=== PATIENT | female | born 1970 | race Caucasian/White ===

== ENCOUNTER 2018-10-19 08:58 | Outpatient (REF) | payer MEDICAID, SELFPAY ==
[2018-10-19 12:23] LABS: Anion Gap 8.2 mmol/L (3-11); BUN 13 mg/dL (7-18); CO2 26.8 mmol/L (21.0-32.0); CREATININE 0.95 mg/dL (0.55-1.02); Calcium 8.9 mg/dL (8.5-10.1); Chloride 104 mmol/L (98-107); Cholesterol 164 mg/dL (50-200); Glucose 91 mg/dL (70-100); HDL Cholesterol 61 mg/dL (40-60); LDL CHOLESTEROL 86 mg/dL (<100); Potassium 4.2 mmol/L (3.5-5.1); Sodium 139 mmol/L (136-145); Triglyceride 57 mg/dL (30-150)
== END 2018-10-19 09:18 ==
LOC: NCHCN 08:58
PROVIDERS: PCP Nurse Practitioner Family; Visit Provider Nurse Practitioner Family
DX: Z00.00 Encounter for general adult medical examination without abnormal findings (principal); Z13.220 Encounter for screening for lipoid disorders; Z13.228 Encounter for screening for other metabolic disorders
CPT/HCPCS: 80048; 80061; 83721

== ENCOUNTER 2018-11-10 17:35 | Outpatient (REF) | payer MEDICAID, SELFPAY ==
--- NOTE | 2018-11-10 16:45 | PAPFT_PTH ---
PATIENT: Zuleima Hutchins LOC: [facility] U#:[id number] AGE/SX: 48/F ROOM: RE11/10/[address]: Fide Bridges : 1970 BED: DIS: 11/10/2018 SPEC #: [id number] RECD: 11/10/18 18:08 STATUS: GRUPO REQ #: [id number] GIGI: 11/10/18 16:[address]: Fide Bridges DEPT: [facility] Cytology RECD BY: Savana Gonzalez Tissues: 1 - CX/ENDOCX FOR PAP SMEARS Procedures: PAP THIN PREP/UVM Screening Comments: [id number]
== END 2018-11-10 17:55 ==
LOC: NCHCN 17:35
PROVIDERS: PCP Nurse Practitioner Family; Visit Provider Nurse Practitioner Family
DX: Z12.4 Encounter for screening for malignant neoplasm of cervix (principal); Z00.00 Encounter for general adult medical examination without abnormal findings
CPT/HCPCS: 88142

== ENCOUNTER 2020-10-10 22:37 | Emergency (ER) | payer MEDICAID, SELFPAY ==
[2020-10-10] VITALS (12 sets, daily range): BP systolic 129–142; BP diastolic 78–89; PULSE 100–109; RESP 17–28; TEMP 37.1; O2SAT 96–98
--- NOTE | 2020-10-10 22:30 | RT.EKG_ITS ---
APPROVED REPORT Exam: Resting ECG Reason for Exam: chest pain Patient Location: E HR:105 bpm ECG Measurements Heart Rate 105 AXIS KS 205 P 31 QRSd 94 QRS -4 QT 339 T 16 QTc 448 Conclusion Sinus tachycardia...rate> 99 Prolonged KS interval...KS >205, V-rate 91-120 Low voltage, precordial leads...precordial leads <1.0mV Physician: Rate 105, intervals unremarkable, sinus tachycardia, no significant ST elevation or depres radha, no evidence of STEMI.
--- NOTE | 2020-10-10 22:45 | DI.CT_ITS ---
Exam(s) CT CHEST PE CTA EXAM: CT CHEST PE CTA CLINICAL HISTORY: CP, SOB, crackles in bases, r/o PE. TECHNIQUE: Imaging Protocol: Axial CT angiography was performed with multi-slice acquisition and mu lti-planar and/or 3D reconstructions. CONTRAST MATERIAL: Intravenous: Omnipaque 350 Contrast volume:100 mL COMPARISON: No exams were available for comparison FINDINGS: The examination is limited due to patient motion artifact. Tracheobronchial tree: Patent where visualized. Pulmonary parenchyma: No consolidation or dominant measurable mass. No architectural distortion. Depe ndent atelectasis. Pulmonary Arteries: No evidence of filling defect to suggest pulmonary emboli. The distal and small p ulmonary arteries are not well evaluated for exclusion of distal pulmonary emboli secondary to patien t motion artifact. Mediastinum and Isela: No dominant adenopathy or fluid collection. Visualized thyroid gland: Unremarkable. Pleura: No effusion or pneumothorax. Heart: The heart is not dilated. No coronary artery calcifications are seen. No pericardial effusion. Aorta: Thoracic aorta non-dilated. No evidence of dissection. Upper abdomen: Probable bilateral renal cysts. Soft tissues: Unremarkable. Bones: Within normal limits for the patient's age. IMPRESSION: No evidence of pulmonary embolism, thoracic aortic dissection or aneurysm. RADIATION DOSE DELIVERED: 460.92mGy.cm Total DLP DATA REPOSITORY: All CT scans at this facility are submitted to the National Radiology Data Registry (NRDR) Dose Index Registry (DIR) with the [employer] (ACR). RADIATION OPTIMIZATION: All CT scans at this facility use at least one of these dose optimization te chniques: automated exposure control; mA and/or kV adjustment per patient size (includes targeted exa ms where dose is matched to clinical indication); or iterative reconstruction.
[2020-10-10 23:05] LABS: Abs Immature Grans 0.03 10^3/uL (0.0-0.06); Absolute Basophil Count 0.03 10^3/uL (0.0-0.2); Absolute Eosinophil Count 0.13 10^3/uL (0.0-0.7); Absolute Lymphocyte Count 1.86 10^3/uL (1.2-3.4); Absolute Monocyte Count 0.81 10^3/uL (0.1-0.8); Absolute Neutrophil Count 7.71 10^3/uL (1.2-6.7); Basophils % 0.3; Eosinophils % 1.2; HCT 37.9 % (36.0-46.0); HGB 11.8 g/dL (11.2-15.7); Immature Grans % 0.3; Lymphocytes % 17.6; MCH 24.6 pg (27.0-33.0); MCHC 31.1 % (32.0-36.0); MCV 79.1 fL (80-95); MPV 9.5 fL (8.0-11.0); Monocytes % 7.7; Neutrophils % 72.9; Nucleated RBC 0 %; Platelet Count 326 10^3/uL (130-400); RBC 4.79 10^6/uL (3.93-5.22); RDW 16.4 % (11.7-14.6); RDW-SD 46.8 fL; WBC 10.57 10^3/uL (4.4-10.8)
[2020-10-10] MEDS: Normal Saline 1,000 ML 1000 ML IV (23:05)
[2020-10-10] MEDS: Omnipaque 350 MG/ML 100 ML BTL IJ (23:10)
[2020-10-10] MEDS: Normal Saline - Diluent 50 ML VIAL IV (23:10)
[2020-10-10 23:11] LABS: BE (Venous) 3 mmol/L (-2-3); HCO3 (Venous) 28 mmol/L (23-28); O2 Sat (Venous) 64 %; TCO2 (Venous) 26 mmol/L (24-29); pCO2 (Venous) 48 mmHg (41-51); pH (Venous) 7.37 (7.31-7.41); pO2 (Venous) 35 mmHg
[2020-10-10 23:19] LABS: PTT Activated 23.7 sec (21.0-27.5); Prothrombin Time 10.3 sec (9.3-11.0)
[2020-10-10 23:26] LABS: ALT 34 U/L (14-59); AST 26 U/L (15-37); Albumin 3.7 g/dL (3.4-5.0); Alkaline Phosphatase 90 U/L (46-116); Anion Gap 8.2 mmol/L (3-11); BUN 11 mg/dL (7-18); Bilirubin, Total 0.3 mg/dL (0.2-1.0); CO2 28.8 mmol/L (21.0-32.0); Calcium 8.9 mg/dL (8.5-10.1); Chloride 103 mmol/L (98-107); Estimated GFR 58.93 (mL/min/1.73m2); Glucose 112 mg/dL (74-106); Lipase 111 U/L (73-393); NT-proBNP 43 pg/mL (<300); Potassium 3.4 mmol/L (3.5-5.1); Sodium 140 mmol/L (136-145); TSH (W/Ref FT4) 2.71 uIU/mL (0.36-3.74); Total Protein 8.2 g/dL (6.4-8.2)
[2020-10-10 23:29] LABS: Troponin I < 0.05 ng/mL (<0.06)
[2020-10-10 23:53] LABS: COVID-19 PCR Negative (Negative)
[2020-10-11] VITALS (17 sets, daily range): BP systolic 119–133; BP diastolic 75–81; PULSE 101–110; RESP 17–27; TEMP 37.1; O2SAT 94–97
--- NOTE | 2020-10-11 00:13 | ED.GENADUL_ITS ---
Discharge Plan Disposition Patient Disposition: HOME Condition: Good Discharge Details Clinical Impression: Pericarditis, Chest pain Primary Care Provider: Fide Bridges ED Provider: Ricardo Capps Home Meds and New Rx's Prescriptions: No Action ibuprofen 200 MG capsule 200 mg PO PRN Qty: 2 RF: 0 Discharge Instructions Instructions: Acute Pericarditis (ED) Additional Instructions: At this time your symptoms appear consistent with acute pericarditis which is irritation of the lining around your heart. Please take 800 mg of ibuprofen every 6 hours and 1000 mg of Tylenol every 6 hours as needed for pain. These are the maximum doses. Please rest and relax for the next few days. Avoid any significant exertion. If you notice any worsening of your symptoms, or any new symptoms such as vomiting, diarrhea, fever, chills, shortness of breath, chest pain, numbness, weakness, or fainting , please return immediately to the emergency department for reevaluation. Please follow up with your primary care provider as soon as possible for reassessment and reevaluation. As always, it was a pleasure participating in your medical care today. Referrals: Fide Bridges [Primary Care Provider] - Medical Decision Making 49-year-old female with no medical history whatsoever aside for previous tobacco abuse 15 years ago, for 15 years, presents today for evaluation of chest pain and shortness of breath. At about noon which was 12 hours ago the patient was in her car after eating lunch and developed mild heaviness on her chest, in addition to the sensation of feeling short of breath. She had pain that radiated to her left and then right shoulder, pain went up her left neck, and into her left hand. Seem to be intermittent and varied in location. Currently she states that it is under her left breast. She describes it as achy. It was not related to exertion or activity. She had no associated coughing. Denies PE risk factors such as recent long car rides, immobilization, recent surgery, prior history of DVT or PE, family history of PE or DVT, morbid obesity, exogenous estrogen and smoking, hemoptysis, history of cancer. She denies any tearing or ripping sensation. She denies a history of cardiac disease or family history of cardiac disease. Symptoms are made worse by lying flat and lying back, they are improved with sitting upright leaning forward. She denies any calf tenderness or swelling. No other complaints at this time. She denies any choking episodes while eating. She states that the day was a notably benign day. Physical exam is notably unremarkable, no calf tenderness, she has mild crackles in her bases bilaterally for lungs but otherwise fine. Heart rate is elevated, aspiratory rate slightly high, but oxygenation is excellent. No reproducible chest wall tenderness. Pain notably worsens when she lies flat, and almost completely resolves when she sits up and leans forward. No shingles. Uncertain as to what the exact etiology is of her symptoms but differential includes PE, less likely dissection, potentially pericarditis. Pneumonia is on the differential but no clear inciting episode, no infectious symptoms otherwise. We will continue to monitor closely, evaluate for these life-threatening etiologies and reassess. Symptoms appear inconsistent with ACS as there appears to be no exertional component, and she has no significant risk factors aside for previous smoking. 2:15 AM Work-up is returned is notably reassuring, no white count to suggest infection. No fever. No bandemia. Electrolytes normal, VBG normal showing no elevation of PCO2. proBNP is normal suggesting no signs of heart strain. Initial and then subsequent repeat troponin and initial and repeat EKG both unremarkable showing no significant ST elevation or signs of STEMI. Thyroid function is normal. CTA was ordered and shows no evidence of pulmonary embolism or dissection. A small amount of atelectasis but no consolidation. Symptoms inconsistent with infection. After initial troponin the patient had no resolution of her symptoms, she continued to have notable worsening of pain when she lies flat on the back and resolution when she leans forward. She was given 30 mg of Toradol and after this on reassessment after second troponin had near complete resolution of her symptoms which she attributes to the medication. Symptoms at this time appear notably consistent with acute pericarditis. Uncertain as to the cause of the etiology, potential viral or idiopathic causative agent. No family history of rheumatoid arthritis or lupus. BUN is normal. Will recommend close follow-up with the patient's PCP. Discussed red flags which to return. R ecommend NSAIDs at home. I have extensively reviewed the treatment plan and discharge instructions with the patient. I have addressed all patient concerns at this time. The patient was made aware of what symptoms to monitor for that would warrant a return to the emergency department. Discussed the plan with the patient, they demonstrate verbal understanding and agreement with our assessment and plan at this time. The documentation in this chart was dictated using [employer] dictation software. Please excuse any dictation errors. EKG 22: 45 Rate 105, intervals unremarkable, sinus tachycardia, no significant ST elevation or depression, no evidence of STEMI. FINDINGS: Limitations: Motion artifact. Pulmonary arteries: No pulmonary embolism identified. Small and distal pulmonary arteries partially obscured by breathing motion artifact and not well evaluated for diagnosis or exclusion of small or distal pulmonary emboli. Aorta: No thoracic aortic aneurysm or dissection. Thyroid: Thyroid gland partially excluded from view but grossly unremarkable through its visualized portion. Lungs: Lung gilliam somewhat obscured by artifact from breathing motion. Dependent atelectasis at the lung bases. No pulmonary consolidation. Pleural spaces: No pleural effusion or pneumothorax. Heart: Normal sized heart. Lymph nodes: No pathologically enlarged mediastinal or hilar lymph nodes. Kidneys and ureters: Small indeterminate hypoattenuating renal lesions, incompletely characterized but statistically most likely renal cysts. Bones/joints: Lower ribs partially excluded from view and incompletely e valuated. Otherwise, no acute fracture seen among the bones of the chest. Soft tissues: No gross soft tissue mass or fluid collection seen in the chest wall. IMPRESSION: Dependent atelectasis. No pulmonary consolidation, pleural effusion, or pneumothorax. Thank you for allowing us to participate in the care of your patient. Dictated and Authenticated by: Usman Ha MD 10/11/2020 12:23 AM Eastern Time ([place] & [place]) HPI General Date/Time Provider Initiated Documentation: 10/10/20 22:38 . HPI Narrative: 49-year-old female with no medical history whatsoever aside for previous tobacco abuse 15 years ago, for 15 years, presents today for evaluation of chest pain and shortness of breath. At about noon which was 12 hours ago the patient was in her car after eating lunch and developed mild heaviness on her chest, in addition to the sensation of feeling short of breath. She had pain that radiated to her left and then right shoulder, pain went up her left neck, and into her left hand. Seem to be intermittent and varied in location. Currently she states that it is under her left breast. She describes it as achy. It was not related to exertion or activity. She had no associated coughing. Denies PE risk factors such as recent long car rides, immobilization, recent surgery, prior history of DVT or PE, family history of PE or DVT, morbid obesity, exogenous estrogen and smoking, hemoptysis, history of cancer. She denies any tearing or ripping sensation. She denies a history of cardiac disease or family history of cardiac disease. Symptoms are made worse by lying flat and lying back, they are improved with sitting upright leaning forward. She denies any calf tenderness or swelling. No other complaints at this time. She denies any choking episodes while eating. She states that the day was a notably benign day. Related Data Home Medications Medication Instructions Recorded Confirmed ibuprofen 200 mg PO PRN #2 10/14/13 10/10/20 Allergies Allergy/AdvReac Type Severity Reaction Status Date / Time No Known Drug Allergies Allergy Unverified 10/10/20 22:50 General Stated Complaint: Chest Pain KANDI: 2 Review of Systems All systems reviewed & are unremarkable except as noted in HPI and below PFSH Social History Smoking/Tobacco Use Status: Former Tobacco Use Smoking risk assessment performed?: Yes Alcohol Intake: never Substance use type: does not use Do you feel safe at home: Yes Do you feel safe in your relationship?: Yes Exam Narrative Exam Narrative: 1.Const: Well-nourished, Well-developed, appearing stated age 2.Eyes: PERRL, no conjunctival injection, and symmetrical lids. 3.ENT: Atraumatic external nose and ears. Moist MM. Neck: Symmetric, trachea midline, No thyromegaly. 4.CVS: +S1/S2, No murmurs or gallops. Peripheral pulses 2+ and equal in all extremities. Brisk capillary refill in all extremities. Radial pulses +2 bilaterally. No friction rub. No carotid bruits. 5.RESP: Unlabored respiratory effort. No wheezes or rhonchi. Minimal crackles in the bases bilaterally. 6.GI: Soft, Nontender/Nondistended, No hepatosplenomegaly. No guarding or rebound. No epigastric reproducible tenderness. 7.MSK: Normocephalic/Atraumatic, Extremities w/o deformity or ttp No cyanosis or clubbing, Normal movement of all extremities. No pitting edema, no calf tenderness 8.Skin: Warm, Dry. No rashes or lesions. No evidence of shingles 9.Neuro: fish warden II-XII grossly intact. Sensation grossly intact, no focal neurologic deficits. 10.Psych: (AAO) x3. Appropriate mood and affect Course Vital Signs Vital signs: Vital Signs Temperature 37.1 C 10/10/20 22:44 Pulse 108 H 10/10/20 22:44 Respiratory Rate 28 H 10/10/20 22:44 Blood Pressure 142/83 H 10/10/20 22:44 Pulse Oximetry 97 10/10/20 22:44 Temperature 37.1 C 10/10/20 22:44 Temperature Source Skin 10/10/20 22:44 Pulse 101 H 10/11/20 00:06 Pulse 104 H 10/11/20 00:10 Respiratory Rate 17 10/11/20 00:10 Respiratory Effort Incrsd Work of Breathing 10/10/20 22:51 Respiratory Depth Normal 10/10/20 22:51 Respiratory Pattern Normal 10/10/20 22:51 Blood Pressure 133/76 10/11/20 00:06 Blood Pressure Mean 88 10/11/20 00:06 Pulse Oximetry 96 10/11/20 00:10 Oxygen Delivery Method Room Air 10/10/20 22:44 Oxygen Flow Rate 0 10/10/20 22:44 Pain Level 7 10/10/20 22:51 Lab/Test Results Lab/Test Results: Laboratory Tests Range/Units 10/10/20 10/10/20 10/10/20 22:48 22:48 22:48 WBC (4.4-10.8) 10^3/uL 10.57 RBC (3.93-5.22) 10^6/uL 4.79 Hgb (11.2-15.7) g/dL 11.8 Hct (36.0-46.0) % 37.9 MCV (80-95) fL 79.1 L MCH (27.0-33.0) pg 24.6 L MCHC (32.0-36.0) % 31.1 L RDW (11.7-14.6) % 16.4 H Plt Count (130-400) 10^3/uL 326 MPV (8.0-11.0) fL 9.5 Immature Gran % 0.3 Neutrophils % 72.9 Lymphocytes % 17.6 Monocytes % 7.7 Eosinophils % 1.2 Basophils % 0.3 Nucleated RBC % % 0 Absolute Neutrophils (1.2-6.7) 10^3/uL 7.71 H Absolute Lymphocytes (1.2-3.4) 10^3/uL 1.86 Absolute Monocytes (0.1-0.8) 10^3/uL 0.81 H Absolute Eosinophils (0.0-0.7) 10^3/uL 0.13 Absolute Basophils (0.0-0.2) 10^3/uL 0.03 PT (9.3-11.0) sec 10.3 INR (0.9-1.1) 1.0 APTT (21.0-27.5) sec 23.7 VBG pH (7.31-7.41) VBG pCO2 (41-51) mmHg VBG pO2 mmHg VBG HCO3 (23-28) mmol/L VBG Total CO2 (24-29) mmol/L VBG O2 Saturation % VBG Base Excess (-2-3) mmol/L Sodium (136-145) mmol/L 140 Potassium (3.5-5.1) mmol/L 3.4 L Chloride (98-107) mmol/L 103 Carbon Dioxide (21.0-32.0) mmol/L 28.8 Anion Gap (3-11) mmol/L 8.2 BUN (7-18) mg/dL 11 Creatinine (0.55-1.02) mg/dL 1.0 Estimated GFR/1.73 m2 (mL/min/1.73m2) 58.93 Glucose (74-106) mg/dL 112 H Calcium (8.5-10.1) mg/dL 8.9 Total Bilirubin (0.2-1.0) mg/dL 0.3 AST (15-37) U/L 26 ALT (14-59) U/L 34 Alkaline Phosphatase (46-116) U/L 90 Troponin I (<0.06) ng/mL < 0.05 NT-Pro-B Natriuret Pep (<300) pg/mL 43 Total Protein (6.4-8.2) g/dL 8.2 Albumin (3.4-5.0) g/dL 3.7 Lipase (73-393) U/L 111 TSH (0.36-3.74) uIU/mL 2.71 COVID-19 Source SARS-CoV-2 (PCR) (Negative) Range/Units 05/04/21 05/04/21 22:48 23:10 WBC (4.4-10.8) 10^3/uL RBC (3.93-5.22) 10^6/uL Hgb (11.2-15.7) g/dL Hct (36.0-46.0) % MCV (80-95) fL MCH (27.0-33.0) pg MCHC (32.0-36.0) % RDW (11.7-14.6) % Plt Count (130-400) 10^3/uL MPV (8.0-11.0) fL Immature Gran % Neutrophils % Lymphocytes % Monocytes % Eosinophils % Basophils % Nucleated RBC % % Absolute Neutrophils (1.2-6.7) 10^3/uL Absolute Lymphocytes (1.2-3.4) 10^3/uL Absolute Monocytes (0.1-0.8) 10^3/uL Absolute Eosinophils (0.0-0.7) 10^3/uL Absolute Basophils (0.0-0.2) 10^3/uL PT (9.3-11.0) sec INR (0.9-1.1) APTT (21.0-27.5) sec VBG pH (7.31-7.41) 7.37 VBG pCO2 (41-51) mmHg 48 VBG pO2 mmHg 35 VBG HCO3 (23-28) mmol/L 28 VBG Total CO2 (24-29) mmol/L 26 VBG O2 Saturation % 64 VBG Base Excess (-2-3) mmol/L 3 Sodium (136-145) mmol/L Potassium (3.5-5.1) mmol/L Chloride (98-107) mmol/L Carbon Dioxide (21.0-32.0) mmol/L Anion Gap (3-11) mmol/L BUN (7-18) mg/dL Creatinine (0.55-1.02) mg/dL Estimated GFR/1.73 m2 (mL/min/1.73m2) Glucose (74-106) mg/dL Calcium (8.5-10.1) mg/dL Total Bilirubin (0.2-1.0) mg/dL AST (15-37) U/L ALT (14-59) U/L Alkaline Phosphatase (46-116) U/L Troponin I (<0.06) ng/mL NT-Pro-B Natriuret Pep (<300) pg/mL Total Protein (6.4-8.2) g/dL Albumin (3.4-5.0) g/dL Lipase (73-393) U/L TSH (0.36-3.74) uIU/mL COVID-19 Source Nasopharyx SARS-CoV-2 (PCR) (Negative) Negative POC- Test(urine) Negative
[2020-10-11] MEDS: Ketorolac 30 MG/ML VIAL IVP (00:23)
--- NOTE | 2020-10-11 00:23 | DI.VRAD_ITS ---
PROCEDURE INFORMATION: Exam: CTA Chest With Contrast Exam date and time: 10/10/2020 10:58 PM Age: 49 years old Clinical indication: Other: Cp, SOB, crackles in bases, R/O pe TECHNIQUE: Imaging protocol: Computed tomographic angiography of the chest with contrast. 3D rendering (Not supervised by radiologist): MIP and/or 3D reconstructed images were created by the technologist. Radiation optimization: All CT scans at this facility use at least one of these dose optimization techniques: automated exposure control; mA and/or kV adjustment per patient size (includes targeted exams where dose is matched to clinical indication); or iterative reconstruction. Contrast material: OMNIPAQUE 350; Contrast volume: 100 ml; Contrast route: INTRAVENOUS (IV); COMPARISON: No relevant prior studies available. FINDINGS: Limitations: Motion artifact. Pulmonary arteries: No pulmonary embolism identified. Small and distal pulmonary arteries partially obscured by breathing motion artifact and not well evaluated for diagnosis or exclusion of small or distal pulmonary emboli. Aorta: No thoracic aortic aneurysm or dissection. Thyroid: Thyroid gland partially excluded from view but grossly unremarkable through its visualized portion. Lungs: Lung gilliam somewhat obscured by artifact from breathing motion. Dependent atelectasis at the lung bases. No pulmonary consolidation. Pleural spaces: No pleural effusion or pneumothorax. Heart: Normal sized heart. Lymph nodes: No pathologically enlarged mediastinal or hilar lymph nodes. Kidneys and ureters: Small indeterminate hypoattenuating renal lesions, incompletely characterized but statistically most likely renal cysts. Bones/joints: Lower ribs partially excluded from view and incompletely evaluated. Otherwise, no acute fracture seen among the bones of the chest. Soft tissues: No gross soft tissue mass or fluid collection seen in the chest wall. IMPRESSION: Dependent atelectasis. No pulmonary consolidation, pleural effusion, or pneumothorax. Dictated and Authenticated by: Usman Ha MD. Ordering:FRANCIS Silva MD
--- NOTE | 2020-10-11 01:30 | RT.EKG_ITS ---
APPROVED REPORT Exam: Resting ECG Reason for Exam: chest pain Patient Location: E HR:105 bpm ECG Measurements Heart Rate 105 AXIS KS 184 P 37 QRSd 91 QRS 4 QT 334 T 3 QTc 442 Conclusion Sinus tachycardia...rate> 99 Probable left atrial enlargement...P >50mS, <-0.10mV V1 Low voltage, precordial leads...precordial leads <1.0mV Physician: No acute change from earlier EKG today. No stemi
[2020-10-11 02:02] LABS: Troponin I < 0.05 ng/mL (<0.06)
== END 2020-10-11 02:16 | disposition home or self-care (01) ==
PROVIDERS: Emergency Provider Student in an Organized Health Care Education/Training Program; PCP Nurse Practitioner Family
DX: I31.9 Disease of pericardium, unspecified (principal); R06.02 Shortness of breath; Z20.822 Contact with and (suspected) exposure to COVID-19; R07.9 Chest pain, unspecified
CPT/HCPCS: 71275; 80053; 81025; 82805; 83690; 87635; 93005; 96361; 96374; 99285; 83880; 84443; 84484; 85025; 85610; 85730; 93010; 99284; J1885; J3490

== ENCOUNTER 2020-11-16 19:02 | Outpatient (REF) | payer MEDICAID, SELFPAY ==
[2020-11-16 19:22] LABS: HGB 11.5 g/dL (11.2-15.7); MCH 24.7 pg (27.0-33.0); MCHC 31.1 % (32.0-36.0); MCV 79.6 fL (80-95); MPV 10.2 fL (8.0-11.0); Platelet Count 296 10^3/uL (130-400); RBC 4.65 10^6/uL (3.93-5.22); RDW 16.8 % (11.7-14.6); RDW-SD 48.2 fL; WBC 4.67 10^3/uL (4.4-10.8)
[2020-11-16 19:45] LABS: Anion Gap 7.3 mmol/L (3-11); BUN 17 mg/dL (7-18); CO2 27.7 mmol/L (21.0-32.0); CREATININE 0.9 mg/dL (0.55-1.02); Calcium 8.9 mg/dL (8.5-10.1); Chloride 107 mmol/L (98-107); Ferritin 13 ng/mL (8-252); Glucose 92 mg/dL (74-106); Hemoglobin A1C 5.8 % (<5.7); Potassium 4.4 mmol/L (3.5-5.1); Sodium 142 mmol/L (136-145)
== END 2020-11-16 19:03 | disposition home or self-care (01) ==
LOC: NCHCN 19:02
PROVIDERS: PCP Nurse Practitioner Family; Visit Provider Family Medicine
DX: D64.9 Anemia, unspecified (principal); R73.9 Hyperglycemia, unspecified; I31.8 Other specified diseases of pericardium
CPT/HCPCS: 80048; 85027; 82728; 83036

== ENCOUNTER 2021-09-13 18:29 | Outpatient (REF) | payer MEDICAID, SELFPAY ==
[2021-09-13 15:22] LABS: HCT 37.9 % (36.0-46.0); HGB 11.8 g/dL (11.2-15.7); MCH 25.9 pg (27.0-33.0); MCHC 31.1 % (32.0-36.0); MCV 83.1 fL (80-95); MPV 10.7 fL (8.0-11.0); Platelet Count 271 10^3/uL (130-400); RBC 4.56 10^6/uL (3.93-5.22); RDW 17.2 % (11.7-14.6); RDW-SD 52.6 fL; WBC 3.26 10^3/uL (4.4-10.8)
[2021-09-13 15:38] LABS: Hemoglobin A1C 5.4 % (<5.7)
[2021-09-13 16:06] LABS: ALT 18 U/L (14-59); AST 19 U/L (15-37); Albumin 3.4 g/dL (3.4-5.0); Alkaline Phosphatase 42 U/L (46-116); Anion Gap 9.7 mmol/L (3-11); BUN 9 mg/dL (7-18); Bilirubin, Total 0.3 mg/dL (0.2-1.0); CO2 26.3 mmol/L (21.0-32.0); CREATININE 0.7 mg/dL (0.55-1.02); Calcium 8.5 mg/dL (8.5-10.1); Chloride 106 mmol/L (98-107); Ferritin 13 ng/mL (8-252); Folate 14.8 ng/mL (8.6-20.0); Glucose 85 mg/dL (74-106); Potassium 4.2 mmol/L (3.5-5.1); Sodium 142 mmol/L (136-145); TSH (W/Ref FT4) 1.74 uIU/mL (0.36-3.74); Total Protein 6.8 g/dL (6.4-8.2); Vitamin B12 445 pg/mL (193-986)
[2021-09-13 16:43] LABS: C-Reactive Protein 0.34 mg/dL (0.0-0.3)
== END 2021-09-13 18:30 | disposition home or self-care (01) ==
LOC: NCHCN 18:29
PROVIDERS: PCP Nurse Practitioner Family; Visit Provider Family Medicine
DX: R60.9 Edema, unspecified (principal); R06.09 Other forms of dyspnea; D64.9 Anemia, unspecified; R20.2 Paresthesia of skin; R79.89 Other specified abnormal findings of blood chemistry
CPT/HCPCS: 80053; 85027; 82607; 82728; 82746; 83036; 84443; 86140

== ENCOUNTER 2021-09-24 03:02 | Outpatient (RCR) | payer MEDICAID, SELFPAY ==
--- NOTE | 2021-09-24 10:45 | HOLTER_ITS ---
APPROVED REPORT Conclusion This is a 48-hour monitor, reportedly ordered for dyspnea on exertion Predominant rhythm is sinus with an average heart rate of 84. Minimum was 62, maximum 143 There were very rare isolated premature ventricular contractions There were very rare isolated atrial premature beats There was no atrial fibrillation, no high-grade AV block, no pauses greater than 3 seconds Patient symptoms corresponded to sinus tachycardia at 113, also to sinus rhythm at 71
== END 2021-10-06 23:59 | disposition home or self-care (01) ==
LOC: RT 03:02
PROVIDERS: PCP Nurse Practitioner Family; Visit Provider Family Medicine
DX: R06.09 Other forms of dyspnea (principal); R60.9 Edema, unspecified; D64.9 Anemia, unspecified; R20.0 Anesthesia of skin
CPT/HCPCS: 93225; 93226

== ENCOUNTER → 2021-11-06 01:10 | Outpatient (CLI) | payer MEDICAID, SELFPAY ==
--- NOTE | 2021-11-06 07:30 | DI.US_ITS ---
APPROVED REPORT EXAM: Comprehensive 2D, Doppler, and color-flow Echocardiogram Patient Location: Out-Patient Offc Spec: Farida Maher RDCS (AE) Indications: TERRY, Paresthesia, Edema Other Information Study Quality: Good Conclusion Normal left ventricular wall thickness and chamber size. Estimated ejection fraction is 55 to 60%. Wall motion is normal Normal right ventricular size and systolic function Both atria are normal in size There is no structural or hemodynamically significant valvular disease Normal estimated right ventricular systolic pressure 18 mmHg Wall motion Left Ventricle The left ventricle is normal size. The left ventricular systolic function is normal. The left ventric ular ejection fraction is within the normal range. There is normal left ventricular wall thickness. T here is normal LV segmental wall motion. There is no ventricular septal defect visualized. LVEF is 58 %. Right Ventricle The right ventricle is normal size. The right ventricular systolic function is normal. The RVSP is 17 .7mmHg. Atria The left atrium size is normal. The right atrium size is normal. The interatrial septum is intact wit h no evidence for an atrial septal defect. Aortic Valve The aortic valve is normal in structure. There is no aortic valvular stenosis. No aortic regurgitatio n is present. Mitral Valve The mitral valve is normal in structure. No evidence of mitral valve stenosis. Trace to mild mitral r egurgitation. Tricuspid Valve The tricuspid valve is normal in structure. There is no tricuspid valve stenosis. Trace to mild tricu spid regurgitation. Pulmonic Valve The pulmonary valve is normal in structure. There is no pulmonic valvular stenosis. Trace pulmonic re gurgitation. Great Vessels The aortic root is normal in size. The ascending aorta is normal in size. Aortic arch is normal in ca liber. IVC is normal in size and collapses >50% with inspiration. Pericardium There is no pericardial effusion. 2D Dimensions IVSD d PLAX 0.81 cm F: 0.6-1.0 LV Vol A2C d MOD 74.4 mL LVPW d PLAX 0.81 cm F: 0.6 - 1.0 LV Vol A4C d MOD 113.6 mL LVID d PLAX 4.61 cm F: 3.8 - 5.2 LA vol/ BSA A2C s A-L 22.2 mL/m2 LVDs 2.95 cm F: 2.2 - 3.5 LA vol/ BSA A4C s A-L 17.4 mL/m2 Ao Root d 2.51 cm F: 2.7 - 3.3 LA Vol/ BSA Biplane s A-L 19.7 mL/m2 RA Area A4C 11.27 cm2 LA Area A4C s MOD 14.32 cm2 RA Vol/ BSA A4C s A-L 12.5 mL/m2 LA Area A2C s MOD 16.26 cm2 Ao Asc Diam d 3.01 cm F: 2.3 - 3.1 LV EF A4C MOD 58.3 % LV EF Teichholz 64.3 % LV EF A2C MOD 60.3 % LVEF (Son's) 56.82 % F: 54 - 74 LV EF Biplane MOD 56.8 % LV Volume 72.33 mL F: 46 - 106 SV 54.27 mL LV Volume Index 37.28 mL/m2 F: 29 - 61 SV Index 27.92 mL/m2 LV Vol Biplane MOD 95.5 mL FS 35.00 % M-Mode TAPSE 2.60 cm (M/F) >1.7 LV Diastology MV E' medial 0.075 (>0.07 m/s) E/A Ratio 0.9 LV E/e MED 9.15 (<14) MV E Vmax 0.69 (0.4-1.3 m/s) MV E' lateral 0.088 (>0.1 m/s) MV A Vmax 0.75 (0.4-1.3 m/s) LV E/e LAT 7.80 (<14) MV E/A Ratio 0.90 MV E/E' medial 9.16 MV E/E' lateral 7.80 Aortic Valve LVOT Area 3.07 cm2 AoV Area Vmax 2.46 cm2 LVOT Vmax 1.07 m/s AoV Area/ BSA (Vmax) 1.27 cm2/m2 LVOT Mean Blane. 0.69 m/s RUDDY Mean Blane. 2.22 cm2 LVOT Peak Grad 4.6 mmHg RUDDY Mean Blane. Index 1.14 cm2/m2 LVOT Mean Grad 2.2 mmHg LVOT VTI 0.209 m LVOT Diam s 1.95 cm AoV Vmax 1.34 m/s Velocity Ratio 0.79 AoV Mean Blane. 0.96 m/s AoV Peak Grad 7.1 mmHg LVOT SV 64.19 mL AoV Mean Grad 4.1 mmHg AoV VTI 0.287 m AoV Area VTI 2.23 cm2 AoV Area/ BSA (VTI) 1.15 cm/m2 Mitral Valve MV DT 247 (160-240 msec) MV PHT 72 msec MV Area PHT 3.07 cm2 MV VTI 0.263 m MV Area VTI 2.44 (4.0-6.0 cm2) Pulmonary Valve PV Vmax 0.83 (0.5-1.5 m/s) RVOT Peak Gr. 1.87 mmHg PV Peak Grad 2.8 mmHg RVOT Mean Gr. 1.00 mmHg PV Mean Grad 1.8 mmHg RVOT VTI 0.158 m PV VTI 0.183 m RVOT Vmax 0.68 m/s Tricuspid Valve TR Peak Grad 14.6 mmHg TR Vmax 1.92 m/s RA Pressure 3.00 mmHg RVSP (TR) 17.7 mmHg
== END ==
PROVIDERS: PCP Nurse Practitioner Family; Visit Provider Family Medicine
DX: R06.09 Other forms of dyspnea (principal); R20.2 Paresthesia of skin; R60.1 Generalized edema
CPT/HCPCS: 93306

== ENCOUNTER → 2021-11-14 01:07 | Outpatient (CLI) | payer MEDICAID, SELFPAY ==
--- NOTE | 2021-11-14 | DI.US_ITS ---
Exam(s) US EXTREMITY VENOUS BI EXAM: US EXTREMITY VENOUS BI CLINICAL HISTORY: ONE MONTH EDEMA BOTH LEGS, NORMAL RENAL FUNCTION, ACHING RT LEG, R60.9 TECHNIQUE: Grayscale, color, and doppler imaging of the deep venous system of both lower extremities was performed. COMPARISON: US US ECHOCARDIOGRAM from 11/06/2021 FINDINGS: There is no evidence of intraluminal thrombus and there is normal compression and augmentation demons trated within the common femoral veins, femoral veins, and popliteal veins of both lower extremities. In the calves the interrogated veins also exhibit normal compression/ augmentation properties. The greater saphenous veins also appear patent as do the saphenofemoral junctions bilaterally.. IMPRESSION: 1. No ultrasound evidence of DVT in either lower extremity. DATA REPOSITORY:
== END ==
PROVIDERS: PCP Nurse Practitioner Family; Visit Provider Family Medicine
DX: R60.0 Localized edema (principal); M79.604 Pain in right leg
CPT/HCPCS: 93970

== ENCOUNTER 2021-11-14 10:16 | Outpatient (REF) | payer MEDICAID, SELFPAY ==
[2021-11-14 16:18] LABS: COMMENT (LAB VIEW ONLY) 130.29 mg/dL; Microalb ug/mg Crea 6.8 ug/mg Cr
== END 2021-11-14 10:17 | disposition home or self-care (01) ==
LOC: NCHCN 10:16
PROVIDERS: PCP Nurse Practitioner Family; Visit Provider Family Medicine
DX: R60.0 Localized edema (principal)
CPT/HCPCS: 82043; 82570

== ENCOUNTER 2021-11-14 12:07 | Outpatient (CLI) | payer MEDICAID, SELFPAY ==
[2021-11-14 17:38] LABS: Rheumatoid Factor <8.6 IU/mL (<12.0)
[2021-11-15 05:25] LABS: Vitamin D 25 Total 29.3 ng/mL (30-100)
[2021-11-15 09:32] LABS: Lyme Ab w Rflx to Lyme Confirm Negative (Negative)
[2021-11-15 15:08] LABS: ANA Interpretation Positive (Negative); ANA Titer Pattern 1:320 Homogeneous
== END 2021-11-14 12:08 | disposition home or self-care (01) ==
LOC: LBO 12:09
PROVIDERS: PCP Nurse Practitioner Family; Visit Provider Psychiatry & Neurology Neurology
DX: G35 Multiple sclerosis (principal); R20.2 Paresthesia of skin; E55.9 Vitamin D deficiency, unspecified
CPT/HCPCS: 36415; 82306; 86038; 86431; 86618

== ENCOUNTER → 2021-11-22 02:24 | Outpatient (CLI) | payer MEDICAID, SELFPAY ==
--- NOTE | 2021-11-22 06:30 | DI.MRI_ITS ---
Exam(s) MR BRAIN WO EXAM: MR BRAIN WO CLINICAL HISTORY: ?MS,PARESTHESIAS,R20.2 TECHNIQUE: Multiplanar multisequence MRI of the brain was performed. COMPARISON: No exams were available for comparison FINDINGS: CEREBRAL PARENCHYMA: There is no evidence of intracranial hemorrhage, mass effect, or shift of midline structures. There are no extra-axial fluid collections. Ventricles are not enlarged or shifted. There is no significant focal signal abnormality in the cerebellar hemispheres nor within the maxx, m idbrain, and thalami. There is no abnormal signal abnormality in the periventricular white matter. No evidence of demyelin ating disease. There is no significant focal signal abnormality evident on diffusion imaging to suggest acute ischem ic event. SWI: No evidence of microhemorrhages. PITUITARY GLAND: No mass nor parasellar abnormality. No obvious abnormality in the cavernous sinuses. FLOW VOIDS: The expected flow void are noted. No evidence of obvious aneurysm nor obvious vascular ma lformation. PARANASAL SINUSES: The visualized paranasal sinuses appear unremarkable. No obvious finding ORBITS: No obvious findings. IMPRESSION: No significant intracranial findings on this noninfused MRI scan of the brain. No evidence of demyelinating disease. DATA REPOSITORY:
== END ==
PROVIDERS: PCP Nurse Practitioner Family; Visit Provider Psychiatry & Neurology Neurology
DX: R20.2 Paresthesia of skin (principal)
CPT/HCPCS: 70551

== ENCOUNTER 2024-07-24 11:34 | Emergency (ER) | payer MEDICAID, SELFPAY ==
[2024-07-24 11:37] VITALS: BP 135/81; PULSE 98; RESP 18; TEMP 36.6; O2SAT 98
--- NOTE | 2024-07-24 12:00 | DI.RAD_ITS ---
Exam(s) XR HIP LT COMPLETE AP PELVIS EXAM: XR HIP LT COMPLETE AP PELVIS CLINICAL HISTORY: left hip pain no fall. TECHNIQUE: 2D digital imaging was performed. COMPARISON: No exams were available for comparison FINDINGS: Two views. There is no evidence of pelvic nor hip fracture. No hip joint space narrowing. No osteophytes. Bon e density normal. No osseous lesions in the hips and pelvis. Sacroiliac joints appear unremarkable. IMPRESSION: No significant osseous findings in the pelvis and hips. DATA REPOSITORY: RADIATION DOSE DELIVERED:
--- NOTE | 2024-07-24 12:00 | DI.RAD_ITS ---
Exam(s) XR LUMBAR SPINE COMPLETE EXAM: XR LUMBAR SPINE COMPLETE CLINICAL HISTORY: left back pain. TECHNIQUE: 2D digital imaging was performed. COMPARISON: No exams were available for comparison FINDINGS: Five views. There is no evidence of fracture, listhesis, nor pars interarticularis defects. There is mild disc space narrowing at L4-5 level. Minimal facet degenerative changes. No scoliosis. Sacroiliac joints appear unremarkable. No osseous lesions. IMPRESSION: No acute osseous findings in the lumbar spine. There is mild disc space narrowing at L4-5 level. DATA REPOSITORY: RADIATION DOSE DELIVERED:
[2024-07-24] MEDS: Cyclobenzaprine 10 MG TAB PO (12:24)
[2024-07-24] MEDS: Ketorolac 30 MG/ML VIAL IM (12:25)
[2024-07-24] MEDS: Lidocaine 5% Patch 1 PATCH TP (12:26)
[2024-07-24] MEDS: methylPREDNISolone SUCC 125 MG VIAL IVP (12:27)
[2024-07-24 12:28] LABS: Bilirubin Negative (Negative); Blood Negative (Negative); Clarity Clear (Clear); Glucose Negative (Negative); Ketones Negative (Negative); Leukocyte Esterase Negative (Negative); Nitrite Negative (Negative); Urobilinogen 0.2 mg/dL (Up to 0.2); pH 6.5 (5-8)
--- NOTE | 2024-07-24 13:19 | DI.VRAD_ITS ---
PROCEDURE INFORMATION: Exam: XR Left Hip Exam date and time: 07/24/2024 12:57 PM Age: 53 years old Clinical indication: Hip pain; Left hip TECHNIQUE: Imaging protocol: Radiologic exam of the left hip. Views: 2 or 3 views hip with pelvis when performed. COMPARISON: No relevant prior studies available. FINDINGS: Bones/joints: Unremarkable. No acute fracture. Soft tissues: Unremarkable. IMPRESSION: No acute findings. Dictated and Authenticated by: Shadi Samuel MD. Orderin Génesis Silva MD
[2024-07-24 13:20] VITALS: BP 119/82; PULSE 75; RESP 14; O2SAT 97
--- NOTE | 2024-07-24 13:20 | DI.VRAD_ITS ---
PROCEDURE INFORMATION: Exam: XR Lumbosacral Spine Exam date and time: 07/24/2024 1:00 PM Age: 53 years old Clinical indication: Low back pain TECHNIQUE: Imaging protocol: Radiologic exam of the lumbosacral spine. Views: 4 or 5 views. COMPARISON: CR XR HIP LT COMPLETE AP PELVIS 07/24/2024 12:57 PM FINDINGS: Bones/joints: Normal. No acute fracture. Normal alignment. Soft tissues: Unremarkable. IMPRESSION: No acute findings. Dictated and Authenticated by: Shadi Samuel MD. Orderin Génesis Silva MD
--- OUTSIDE RECORDS SUMMARY | 2024-07-24 13:20 | XMS_ITS | Encounter Summary ---
Author Organization [facility] Address [address] [place] [address] Care Team Providers Care Email Marketing Manager Name Role Phone Unknown, Provider Primary Care Provider Unava ilable Encounter Details Date Type Department Care Team (Late st Contact Info) Description 10/25/2008 Orders Only [facility] Laboratory Services - [facility] [place] [place] [address] [place], [place] [id number] Lani Recinos NP [address] [facility],[address] [phone] Social History Tobacco Use Types Packs/Day Years Used Date Smoking Tobacco: Never Assessed Comments Unknown Sex and Gender Information Value Date Recorded Sex Assigned at Not on file Legal Sex Female 18:45 EST Gender Identity Not on file Sexual Orientation Not on file documented as of this encounter Plan of Treatment Not on file documented as of this encounter Procedures Procedure Name Priority Date/Time Associated Diagnosis Comments HPV DETECTION, HIGH RISK TYPES Routine 10/25/2008 16:30 EDT CYTOPATHOLOGY Routine 10/25/2008 0:00 EDT documented in this encounter Results * HUMAN PAPILLOMA VIRUS DNA TEST (10/25/2008 16:30 EDT) Specimen Description Cervix, ThinPrep vial [facility] Result Negative for HPV types 16, 18, 31, 33, 35, 39, 45, 51, 52, 56, 58, 59, and 68. [facility] Report Status Final 11/08/2008 [facility] 10/25/2008 16:3 0 EDT 11/02/2008 8:55 EDT us Lani Recinos FRANCHISE SALES REPRESENTATIVE MICROBIOLOGY - GENERAL ORDER YOSELIN Final Result [facility] [address] [place] [address] * CYTOPATHOLOGY (10/25/2008 0:00 EDT) Pathology Report: CYTOPATHOLOGY REPORT ? Reports generated via electronic interface contain original data; ? however they are lacking the format of the original report. ? Caution should be taken when reading/interpreti ng unformatted reports. ? Name: ? ZULEIMA CHANEL ? Accession #: ? [id number] ? : ? 1970 (Age: 37) ??F ?Collect Date: ? 10/25/2008 ? Location: ? [facility] ? Receive Date: ? 10/27/2008 ? Provider: ?LANI W BESCH FRANCHISE SALES REPRESENTATIVE ? Copy to: ? Specimen/Source: ?Pap Test, Cervix/Endocervix, ThinPrep Imaging System ? with manual evaluation ? Last Menstrual Period: ? 5/7/09 ? Other: ? HPVDX - HPV testing requested regardless of diagnosis on current ThinPrep Pap ?? test. ? SPECIMEN ADEQUACY ? Satisfactory for Evaluation ? - transformation zone component present ? GENERAL CATEGORIZATION ? Negative for Intraepithelial Lesion or Malignancy ? Document reviewed and electronically signed by: ? Chikis Adams, CT(ASCP) ? Report Date: ??11/01/2008 13:18 ? End of Report ? [facility] 10/25/2008 10/27/2008 us Lani Recinos FRANCHISE SALES REPRESENTATIVE PATHOLOGY ORDERABLES Final R esult [facility] [address] [place] [address] documented in this encounter Visit Diagnoses Not on filedocumented in this encounter Care Teams Email Marketing Manager Relationship Specialty Start Date End Date Unknown, Provider, PCP - General 10/27/08 documented as of this encounter
--- OUTSIDE RECORDS SUMMARY | 2024-07-24 13:20 | XMS_ITS | Encounter Summary ---
[place] [address] Care Team Providers Care Supervisor Plastering Name Role Phone Unavailable Primary Care Provider Unavailabl e Encounter Details Date Type Department Care Team (Late st Contact Info) Description 04/10/2010 3:45 PM EDT Office Visit Dermatology [address] [place] [address] Fercho Mauricio MD [address] [facility] [place] [address] Social History Tobacco Use Types Packs/Day Years Used Date Smoking Tobacco: Never Assessed Sex and Gender Information Value Date Recorded Sex Assigned at Not on file Gender Identity Not on file Sexual Orientation Not on file documented as of this encounter Plan of Treatment Not on file documented as of this encounter Visit Diagnoses Not on filedocumented in this encounter
--- OUTSIDE RECORDS SUMMARY | 2024-07-24 13:20 | XMS_ITS | Encounter Summary ---
Author Organization [facility] Address [address] [place] [address] Care Team Providers Care Pot Press Operator Name Role Phone Unknown, Provider Primary Care Provider Unava ilable Encounter Details Date Type Department Care Team (Late st Contact Info) Description 11/10/2018 Results Only [facility] [phone] Verenice Bridges FNP [address] [place], [place] [phone] Social History Tobacco Use Types Packs/Day Years [...] Procedure Name Priority Date/Time Associated Diagnosis Comments PAP TEST- RESULT ONLY Routine 11/10/2018 0:00 EDT documented in this encounter Results * PAP TEST- RESULT ONLY (11/10/2018 0:00 EDT) Pathology Report: CYTOPATHOLOGY REPORT Reports generated via electronic interface contain original data; however they are lacking the format of the original report. Caution should be taken when reading/interpreti ng unformatted reports. Name: ? ZULEIMA BEATTY ? Accession #: ? [id number] : ? 1970 (Age: 48) ??F ?Collect Date: ? 11/10/2018 Location: ? [facility] ? Receive Date: ? 11/11/2018 Provider: ?VERENICE BRIDGES USED CAR SALES MANAGER Copy to: ? Specimen/Source: ?Pap Test, Cervix, ThinPrep Imaging System with manual evaluation Last Menstrual Period: ? Other: ? Additional clinical information: Z00.00 Z12.4 Z11.51 ? SPECIMEN ADEQUACY ? Satisfactory for Evaluation - transformation zone component present GENERAL CATEGORIZATION ? Negative for Intraepithelial Lesion or Malignancy ? Document reviewed and electronically signed by: ? Chikis Adams, CT(ASCP) ? Report Date: ??11/12/2018 15:04 End of Report [facility] 11/10/2018 11/11/2018 us Verenice [facility] PATHOLOGY ORDERABLES Final Res ult [facility] [address] [place] [address] documented in this encounter Visit Diagnoses Not on filedocumented in this encounter Care Teams Pot Press Operator Relationship Specialty Start Date End Date Unknown, Provider, PCP - General 10/27/08 documented as of this encounter
--- OUTSIDE RECORDS SUMMARY | 2024-07-24 13:20 | XMS_ITS | Referral Summary ---
Author Organization [facility] Address [address] [place] [address] Care Team Providers Care Lead Person Name Role Phone Unknown, Provider MD Primary Care Provider Unava ilable Social History Tobacco Use Types Packs/Day Years Used Date Smoking Tobacco: Never Assessed Comments Unknown Sex and Gender Information Value Date Recorded Sex Assigned at Not on file Legal Sex Female 18:45 EST Gender Identity Not on file Sexual Orientation Not on file Plan of Treatment Not on file Care Teams Lead Person Relationship Specialty Start Date End Date Unknown, Provider, PCP - General 10/27/08
--- OUTSIDE RECORDS SUMMARY | 2024-07-24 13:20 | XMS_ITS | Clinical Summary ---
Author Organization [facility] Address [address] [place] [address] Care Team Providers Care Mule Spinner Name Role Phone Unknown, Provider MD Primary Care Provider Unava ilable Social History Tobacco Use Types Packs/Day Years Used Date Smoking Tobacco: Never Assessed Comments Unknown Sex and Gender Information Value Date Recorded Sex Assigned at Not on file Legal Sex Female 18:45 EST Gender Identity Not on file Sexual Orientation Not on file Plan of Treatment Health Maintenance Due Date Last Done Comments Hepatitis C Screen 1970 Hepatitis B Vaccine (1 of 3 - 19+ 3-dose series) 11/06 COVID-19 Vaccine (2023- season) 2024 Care Teams Mule Spinner Relationship Specialty Start Date End Date Unknown, Provider, PCP - General 10/27/08
--- OUTSIDE RECORDS SUMMARY | 2024-07-24 13:20 | XMS_ITS | Clinical Summary ---
Author Organization [facility] [place] [address] Care Team Providers Care Speech And Language Clinician Name Role Phone None Primary Care Provider Unavailabl e Medications Medication Sig Dispensed Refills Start Date End Date Status spironolactone (ALDACTONE) 50 mg tablet 50 MG = 1 Tablet(s), PO, Twice daily 04/10/2010 Active Social History Tobacco Use Types Packs/Day Years Used Date Smoking Tobacco: Never Assessed Sex and Gender Information Value Date Recorded Sex Assigned at Not on file Gender Identity Not on file Sexual Orientation Not on file Plan of Treatment Health Maintenance Due Date Last Done Comments CT Colonography 1970 Colonoscopy 1970 Colorectal Cancer Screening 1970 FIT DNA 1970 FIT 1970 Sigmoidoscopy (10 year) with FIT yearly 1970 Sigmoidoscopy 1970 HIV screen 1988 Hepatitis C Screening 1988 Hepatitis B vaccine (0-59 yrs) (1) 1989 Tetanus/Diphtheria/Pertussis Vaccines (1 - Tdap) 11/06 HPV test 2000 PAP Smear 2000 Breast Cancer Share Decision Needed 2010 Breast Cancer screening 2010 Pneumoccocal Vaccine: 50+ (1 of 1 - PCV) 2020 Zoster vaccine (1 of 2) 2020 Covid-19 Vaccine (1 - 2023- season) 2024 Influenza (Flu) vaccine (1 o f 1 - Influenza standard series) 02/08/2024 Care Teams Speech And Language Clinician Relationship Specialty Start Date End Date None None PCP - General 06/18/24
--- OUTSIDE RECORDS SUMMARY | 2024-07-24 13:20 | XMS_ITS | Encounter Summary ---
Author Organization [facility] Address [address] [place] [address] Care Team Providers Care Personnel Consultant Name Role Phone Unknown, Provider MD Primary Care Provider Unava ilable Encounter Details Date Type Department Care Team (Late st Contact Info) Description 11/14/2021 Lab Requisition [facility] Pathology & Laboratory Medicine - [facility] [address] [place] [address] Outr Resulting Lab, Provider Social History Tobacco Use Types Packs/Day Years [...] Procedure Name Priority Date/Time Associated Diagnosis Comments HOLD SST Today 11/14/2021 10:25 EDT HOLD SST Today 11/14/2021 10:25 EDT LYME AB Today 11/14/2021 10:25 EDT RHEUMATOID FACTOR Today 11/14/2021 10: 25 EDT ANTI NUCLEAR AB (TOMAS), IFA Today 11/14/2021 10:25 EDT documented in this encounter Results * HOLD SST (11/14/2021 10:25 EDT) Hold Hold 11/14/2021 18:[address] [facility] Blood VENOUS BLOOD / Unknown 11/14/2021 10:25 EDT 11/14/2021 16:53 EDT us Provider Outr Resulting Lab LAB INFO SERVICE AND SUPPORT & PHONE RESULT Final Result [facility] [address] [place] [address] * HOLD SST (11/14/2021 10:25 EDT) Hold Hold 11/14/2021 18:[address] [facility] Blood VENOUS BLOOD / Unknown 11/14/2021 10:25 EDT 11/14/2021 16:53 EDT us Provider Outr Resulting Lab LAB INFO SERVICE AND SUPPORT & PHONE RESULT Final Result Performing Organization Address City/[facility]/ZIP Co de Phone Number [facility] [address] [place] [id number] * LYME AB (11/14/2021 10:25 EDT) Pathologist [facility] Lyme Ab Negative Negative 11/15/2021 9:[address] [facility] Blood VENOUS BLOOD / Unknown 11/14/2021 10:25 EDT 11/14/2021 16:53 EDT us Provider Outr Resulting Lab IMMUNOLOGY AND SEROL OGY ORDERABLES Final Result [facility] [address] [place] [id number] * RHEUMATOID FACTOR (11/14/2021 10:25 EDT) [facility] Rheumatoid Factor <8.6 <12.0 IU/mL 11/14/2021 17:[address] [facility] Blood VENOUS BLOOD / Unknown 11/14/2021 10:25 EDT 11/14/2021 16:53 EDT us Provider Outr Resulting Lab CHEMISTRY & BLOOD GA S ORDERABLES Final Result [facility] [address] [place] [address] * (ABNORMAL) ANTI NUCLEAR AB (TOMAS), IFA (11/14/2021 10:25 EDT) TOMAS Interpretation Positive(A) Negative 11/15/2021 15:[address] [facility] Comment: For titers greater than or equal to 1:160 (except the centromere and nucleolar patterns) it is recommended that specific follow-up autoantibody testing ??(such as for dsDNA and Extractable Nuclear Antigens) be performed on all diffuse and/or speckled patterns NOTE: For add-on testing dsDNA is stable for 7 days refrigerated while Extractable Nuclear Antigens are only stable for 48 hours refrigerated. TOMAS Titer and Pattern 1 1:320 Homogeneous 11/15/2021 15:02 ED[address] [facility] Blood VENOUS BLOOD / Unknown 11/14/2021 10:25 EDT 11/14/2021 16:53 EDT Narrative [facility] - 11/15/2021 15:02 EDT Results were obtained with the INOVA NOVA Lite HEp-2 TOMAS Kit by indirect immunofluorescence. us Provider Outr Resulting Lab IMMUNOLOGY AND SEROL OGY ORDERABLES Final Result [facility] [address] [place] [address] documented in this encounter Visit Diagnoses Not on filedocumented in this encounter Care Teams Personnel Consultant Relationship Specialty Start Date End Date Unknown, Provider, PCP - General 10/27/08 documented as of this encounter
--- OUTSIDE RECORDS SUMMARY | 2024-07-24 13:20 | XMS_ITS | Encounter Summary ---
Author Organization [facility] Address [address] [place] [address] Care Team Providers Care Canvas Baster Name Role Phone Unknown, Provider Primary Care Provider Unava ilable Encounter Details Date Type Department Care Team (Late st Contact Info) Description 11/14/2011 Results Only [facility] Laboratory Services - [facility] [place] [place] [address] [place], [place] [id number] Lani Recinos NP [address] [facility],[address] [phone] Social History Tobacco Use [...] Diagnosis Comments PAP TEST- RESULT ONLY Routine 11/14/2011 0:00 EDT documented in this encounter Results * PAP TEST- RESULT ONLY (11/14/2011 0:00 EDT) Pathology Report: CYTOPATHOLOGY REPORT Reports generated via electronic interface contain original data; however they are lacking the format of the original report. Caution should be taken when reading/interpreti ng unformatted reports. Name: ? ZULEIMA CHANEL ? Accession #: ? [id number] : ? 1970 (Age: 41) ??F ?Collect Date: ? 11/14/2011 Location: ? [facility] ? Receive Date: ? 11/18/2011 Provider: ?LANI RECINOS LINE HAUL DRIVER Copy to: ? Specimen/Source: ?Pap Test, Cervix/Endocervix, ThinPrep Imaging System with manual evaluation Last Menstrual Period: ? Treatment History: ? Miscellaneous treatment: C- Section 1994 ? SPECIMEN ADEQUACY ? Satisfactory for Evaluation - transformation zone component present GENERAL CATEGORIZATION ? Negative for Intraepithelial Lesion or Malignancy ? Document reviewed and electronically signed by: ? Jaime Isabel, CT(ASCP) ? Report Date: ??11/19/2011 10:15 End of Report [facility] 11/14/2011 11/18/2011 us Lani Recinos NP PATHOLOGY ORDERABLES Final R esult [facility] [address] [place] [address] documented in this encounter Visit Diagnoses Not on filedocumented in this encounter Care Teams Canvas Baster Relationship Specialty Start Date End Date Unknown, Provider, PCP - General 10/27/08 documented as of this encounter
--- NOTE | 2024-07-24 13:23 | ED.GENADUL_ITS ---
Discharge Plan Disposition Patient Disposition: Home Condition: Good Discharge Details Clinical Impression: Left low back pain Primary Care Provider: Mag Price ED Provider: Ricardo Capps Home Meds and New Rx's Prescriptions: New cyclobenzaprine 10 mg tablet 10 mg PO TID Qty: 14 0RF prednisone 50 mg tablet 50 mg PO DAILY Qty: 5 0RF lidocaine [Lidoderm] 5 % adhesive patch,medicated 1 patch Topical Q24H Qty: 15 0RF No Action multivitamin [Daily Multi-Vitamin] Tablet 1 tab PO DAILY cyanocobalamin (vitamin B-12) 1,000 mcg capsule 1,000 mcg PO DAILY ascorbic acid (vitamin C) 500 mg capsule PO jaadxfh-fuabyivmy-nrmv 333-133-5 mg tablet PO cholecalciferol (vitamin D3) 50 mcg (2,000 unit) capsule 50 mcg PO DAILY ibuprofen 200 MG capsule 200 mg PO PRN Qty: 2 magnesium oxide 400 mg magnesium tablet 400 mg PO DAILY omega 2-aqt-smp-fish oil [Fish Oil] 1,200 (144-216) mg capsule 1 cap PO DAILY Discharge Instructions Instructions: Low Back Pain ED Additional Instructions: At this time your signs and symptoms are clinically consistent with a back sprain. This can cause significant pain and take a fair bit of time to heal. I expect 1 to 2 months for potential resolution. In the meantime do not lift anything greater than 5 pounds for the next 2 weeks. Avoid any significant vigorous physical activity. Perform easy gentle regular activities at home without any significant bending or lifting. Please take the steroids as directed. You have been given a prescription for Lidoderm patch. If your insurance does not cover this you can get [id number] Lidoderm patches at 4% which are almost just as effective. Please take the Flexeril as directed but do not take it when driving or operating any vehicles or heavy machinery, swimming, taking long baths, or operating firearms. Please use a heating pad as often as possible on your back. Perform daily gentle stretches on your back. Please continue to take the Tylenol and Motrin. You can take 1000 mg of Tylenol every 6 hours and 600 mg of ibuprofen every 6 hours. If you notice any worsening of your symptoms, or any new symptoms such as vomiting, diarrhea, fever, chills, shortness of breath, chest pain, numbness or tingling in your groin or legs, weakness in your legs, loss of control for your bowels or bladder, or fainting , please return immediately to the emergency department for reevaluation. Please follow up with your primary care provider as soon as possible for reassessment and reevaluation. As always, it was a pleasure participating in your medical care today. Referrals: Mag Price MD [Primary Care Provider] - [facility] General Date/Time Provider Initiated Documentation: 07/24/24 11:38 . HPI Narrative: 53-year-old female with no significant past medical history presents today for evaluation of left lower back and hip pain. Patient states that for the last 10 days she has had mild left back and hip achiness. She describes it as a constant ache with occasional sharp components. She denies fever or chills. She denies any trauma. It all started when she was in her shower and lifted up and leaned forward on her left hip/leg. Pain is made worse with movement and activity. Notably improved with Motrin. Patient denies any saddle anesthesia, numbness or tingling in the groin, change in sensation when wiping. Patient denies any change in sensation during sexual intercourse, bowel or bladder incontinence, leakage, or retention. Patient denies any weakness in the lower extremities, atypical falls or imbalance. No other complaints at this time. No other modifying factors. Related Data Home Medications ?Medication ?Instructions ?Recorded ?Confirmed ibuprofen 200 mg capsule 200 mg PO PRN ##2 10/14/13 07/24/24 magnesium oxide 400 mg PO DAILY 10/15/21 07/24/24 ascorbic acid (vitamin C) 500 mg mg PO 10/23/21 11/27/21 capsule nkthnal-ffnocagba-xcbu 333 mg-133 tab PO 10/23/21 11/27/21 mg-5 mg tablet cyanocobalamin (vitamin B-12) 1,000 mcg PO DAILY 10/23/21 07/24/24 1,000 mcg capsule multivitamin (Daily Multi-Vitamin 1 tab PO DAILY 10/23/21 07/24/24 tablet) cholecalciferol (vitamin D3) 50 50 mcg PO DAILY 11/27/21 07/24/24 mcg (2,000 unit) capsule cyclobenzaprine 10 mg tablet 10 mg PO TID #14 tabs 07/24/24 lidocaine 5 % topical patch 1 patch topical Q24H #15 ea 07/24/24 (Lidoderm) omega 1-gjw-dqo-fish oil 1,200 mg 1 cap PO DAILY 07/24/24 07/24/24 (144 mg-216 mg) capsule (Fish Oil) prednisone 50 mg tablet 50 mg PO DAILY #5 tabs 07/24/24 Previous Rx's ?Medication ?Instructions ?Recorded cyclobenzaprine 10 mg tablet 10 mg PO TID #14 tabs 07/24/24 lidocaine 5 % topical patch 1 patch topical Q24H #15 ea 07/24/24 (Lidoderm) prednisone 50 mg tablet 50 mg PO DAILY #5 tabs 07/24/24 Allergies Allergy/AdvReac Type Severity Reaction Status Date / Time No Known Allergies Allergy Unverified 07/24/24 11:40 General Stated Complaint: Nk/Back Pain KANDI: 3 Exam Narrative Exam Narrative: 1.Const: Well-nourished, Well-developed, appearing stated age 2.Eyes: PERRL, no conjunctival injection, and symmetrical lids. 3.ENT: Atraumatic external nose and ears. Moist MM. Neck: Symmetric, trachea midline, No thyromegaly. 4.CVS: +S1/S2, Peripheral pulses 2+ and equal in all extremities. Brisk capillary refill in all extremities. 5.RESP: Unlabored respiratory effort. Clear to auscultation bilaterally. No wheezes rales or rhonchi 6.GI: Soft, Nontender/Nondistended, No hepatosplenomegaly. No guarding or hayde ound. 7.MSK: Normocephalic/Atraumatic, Extremities w/o deformity or ttp No cyanosis or clubbing, Normal movement of all extremities No midline tenderness to palpation over the CTLS spine. Normal ROM in flexion, extension, side bend, and rotation. Mild pain over the left SI joint. patient has +5 out of 5 strength in the lower extremities in dorsiflexion and plantarflexion, knee flexion and extension, hip flexion and extension. Normal strength for dorsiflexion and plantar flexion of the great toe bilaterally. There is +2 over 2 dorsalis pedis pulses bilaterally. There is normal sensation to the skin with light touch at the foot, knee, and hip. Normal saddle sensation. Good sensation over the deep sural nerve area bilaterally. Rectal exam demonstrates good rectal tone with excellent michael-rectal sensation. Reflexes are +2 over 4 in the patellar reflex bilaterally. +5 out of 5 strength in the medial, ulnar, radial nerve distribution bilaterally in the hands as well as intact light touch sensation to these dermatomes on the hands 8.Skin: Warm, Dry. No rashes or lesions. 9.Neuro: oil expert II-XII grossly intact. Sensation grossly intact, no focal neurologic deficits. 10.Psych: (AAO) x3. Appropriate mood and affect Course Vital Signs Vital signs: Vital Signs Temperature 36.6 C 07/24/24 11:37 Pulse 98 H 07/24/24 11:37 Respiratory Rate 18 07/24/24 11:37 Blood Pressure 135/81 07/24/24 11:37 Pulse Oximetry 98 07/24/24 11:37 Temperature 36.6 C 07/24/24 11:37 Pulse 75 07/24/24 13:20 Respiratory Rate 14 07/24/24 13:20 Blood Pressure 119/82 07/24/24 13:20 Blood Pressure Position Standing 07/24/24 11:37 Pulse Oximetry 97 07/24/24 13:20 Oxygen Delivery Method Room Air 07/24/24 13:20 Oxygen Flow Rate 0 07/24/24 13:20 Pain Level 3 07/24/24 13:20 Lab/Test Results Lab/Test Results: Laboratory Tests Range/Units 07/24/24 12:13 Urine Color (Yellow) Yellow Urine Clarity (Clear) Clear Urine pH (5-8) 6.5 Ur Specific Jackson (1.005-1.025) 1.010 Urine Protein (Neg-Trace) mg/dL Negative Urine Ketones (Negative) mg/dL Negative Urine Blood (Negative) Negative Urine Nitrite (Negative) Negative Urine Bilirubin (Negative) Negative Urine Urobilinogen (Up to 0.2) mg/dL 0.2 Ur Leukocyte Esterase (Negative) Negative Urine Glucose (Negative) mg/dL Negative Medical Decision Making 53-year-old female with no significant past medical history presents today for evaluation of left lower back and hip pain. Patient states that for the last 10 days she has had mild left back and hip achiness. She describes it as a constant ache with occasional sharp components. She denies fever or chills. She denies any trauma. It all started when she was in her shower and lifted up and leaned forward on her left hip/leg. Pain is made worse with movement and activity. Notably improved with Motrin. Patient denies any saddle anesthesia, numbness or tingling in the groin, change in sensation when wiping. Patient denies any change in sensation during sexual intercourse, bowel or bladder incontinence, leakage, or retention. Patient denies any weakness in the lower extremities, atypical falls or imbalance. No other complaints at this time. No other modifying factors. Physical exam of the back is unremarkable, mild pain and achiness over the left SI joint. No concerning red flags to suggest cauda equina syndrome, significant neurovascular compromise, appendicitis, diverticulitis, or kidney stone. Urinalysis was ordered and is negative for any evidence of blood or infection to suggest Joseph or stone. X-rays were ordered and demonstrates no evidence of acute process for fracture. There certainly does appear to be some arthritis noted, but no significant acute injury. Suspect back sprain and joint irritation particularly at the SI joint. Will recommend Lidoderm patch, NSAID therapy, steroids for the next few days. Suspect potential very mild radiculopathy as well. Patient stable for discharge. No red flags of IV or illicit drug use to suggest paraspinal abscess. No fevers to suggest infection. I have extensively reviewed the treatment plan and discharge instructions with the patient. I have addressed all patient concerns at this time. The patient was made aware of what symptoms to monitor for that would warrant a return to the emergency department. Discussed the plan with the patient, they demonstrate verbal understanding and agreement with our assessment and plan at this time. The documentation in this chart was dictated using [employer] dictation software. Please excuse any dictation errors. FINDINGS: Bones/joints: Normal. No acute fracture. Normal alignment. Soft tissues: Unremarkable. IMPRESSION: No acute findings. Thank you for allowing us to participate in the care of your patient. Dictated and Authenticated by: Shadi Samuel MD 07/24/2024 1:19 PM Eastern Time ([place] & [place]) FINDINGS: Bones/joints: Unremarkable. No acute fracture. Soft tissues: Unremarkable. IMPRESSION: No acute findings. Thank you for allowing us to participate in the care of your patient. Dictated and Authenticated by: Shadi Samuel MD 07/24/2024 1:19 PM Eastern Time ([place] & [place]) Quality:SDOH Health Related Social Needs: No Data to Display PFSH All Active Problems (Updated 07/24/24 @ 13:27 by Ricardo Capps DO) Left low back pain (Acute) Paresthesias (Acute) of face and R leg B12 level border-line low Medical History (Updated 07/24/24 @ 13:27 by Ricardo Capps DO) Quit using tobacco in remote past 2005; pack-years of 20 Palpitations Edema TOMAS positive History of pericarditis 10/2020 Anemia History of prediabetes Surgical History S/P section Family History Father Hypertension Heart disease Parkinson disease Social History Smoking/Tobacco Use Status: Former Tobacco Use Smoking risk assessment performed?: Yes Alcohol Intake: never Drug use: Never Substance use type: does not use Household members: spouse and family Number of Children: 1 current occupation: Cook What is your relationship status?: Panel score (0-1 are the most socially isolated patients): 1 Do you feel safe at home: Yes Do you feel safe in your relationship?: Yes Additional Social history: 3 step-children
== END 2024-07-24 13:40 | disposition home or self-care (01) ==
PROVIDERS: Emergency Provider Student in an Organized Health Care Education/Training Program; PCP Family Medicine
DX: M54.50 Low back pain, unspecified (principal); M25.552 Pain in left hip; Z87.891 Personal history of nicotine dependence
CPT/HCPCS: 96372; 96374; 99284; 72110; 73502; 81003; 99283; J1885; J2919